=== PATIENT | female | born 1950 | race Two or more races ===

== ENCOUNTER → 2017-10-28 | Outpatient (CLI) | payer MEDICAID, MEDICARE ==
[~2017-10-28] VITALS: Ht 157.5 cm; Wt 52.6 kg
== END | disposition home or self-care (01) ==
LOC: Rad HDHVI 13:51
PROVIDERS: ATTEND Internal Medicine Cardiovascular Disease
DX: Z01.810 Encounter for preprocedural cardiovascular examination (principal); K80.20 Calculus of gallbladder without cholecystitis without obstruction; R07.89 Other chest pain
CPT/HCPCS: 78452; 93017; 93306; 96374